=== PATIENT | female | born 1960 | race Asian ===

== ENCOUNTER 2016-05-21 12:51 | Day surgery (SDC) | payer OTHER ==
[~2016-05-21] VITALS: Ht 157.5 cm; Wt 58.9 kg
[2016-05-21] MEDS ORDERED: DEXTROSE 50% 50 ML SYRINGE ONE (14:18)
[2016-05-21 14:19] VITALS: Ht 157.5 cm; Wt 58.9 kg
[2016-05-21] MEDS ORDERED: PARO20TA58 PO (14:25)
[2016-05-21] MEDS ORDERED: METF-480 PO (14:25)
[2016-05-21] MEDS ORDERED: CRES10 PO (14:25)
[2016-05-21 15:13] VITALS: BP 116/79; PULSE 91; RESP 16
[2016-05-21] MEDS ORDERED: MIDAZOLAM 1 MG/ML 2 ML INJ ONE (15:36)
[2016-05-21] MEDS ORDERED: PROPOFOL 20 ML ONE (15:36)
[2016-05-21] MEDS ORDERED: LIDOCAINE 2% (SDV) 5 ML INJ ONE (15:36)
[2016-05-21 16:20] VITALS: BP 103/55; PULSE 76; RESP 16
[2016-05-21 16:50] VITALS: BP 119/82; PULSE 72; RESP 13
--- NOTE | 2016-05-21 19:37 | GILP ---
DATE OF PROCEDURE: NAME OF PROCEDURE: Colonoscopy to cecum. SURGEON: Luis Armando Foster MD. HISTORY AND INDICATIONS: The patient here for colorectal cancer screening. PREMEDICATION: Monitored anesthesia care by anesthesiologist. INSTRUMENT USED: Olympus colonoscope. PREPARATION: Adequate. TECHNIQUE: After informed consent, with the patient/relatives understanding the procedure, its indic ations potential risks and complications, including but not limited to: allergic reaction, bleeding, perforation, infection, missed lesions, and after all pertinent questions were answered to the mayra ent's satisfaction, the patient/relatives signed the witnessed informed consent. Following this, premedication was administered slowly IV push by under careful cardiovascular and re spiratory monitoring with pulse oximetry, automatic blood pressure and shelter monitor. Once the sedati ve effect was achieved, the patient was placed in the left lateral decubitus position, digital recta l examination was performed. The colonoscope was then introduced and advanced under visual control throughout all segments of the colon including: the rectum, sigmoid, descending colon, splenic flexu re, transverse colon, hepatic flexure, ascending colon and finally reaching the cecum which was rajiv rly identified by transillumination, finger indentation and the ileocecal valve. Careful examinatio n of the mucosa of the lower gastrointestinal tract both on insertion as well as withdrawal of the i nstrument disclosed the following findings: Rectal Examination: No evidence of perirectal disease, no masses. Colonic Mucosa: The colonic mucosa is remarkable for a posterior multiple aphthous ulcerations/nodul arities in the rectum. Biopsies were obtained. The remainder of colonic mucosa is entirely unremar kable. The ileocecal valve was clearly identified and appears unremarkable. Terminal ileum was ent ered and appears unremarkable as well. The instrument was withdrawn reexamining the mucosa in detai l. No additional abnormalities are noted with exception of moderate sized internal hemorrhoids. The instrument was then withdrawn, the patient tolerated the procedure well and was transferred out of the [facility] awake and in good condition to continue recovery under observation. IMPRESSION: 1. Cluster of aphthous ulcers/nodules in the area of the rectum. Biopsies were obtained. 2. Otherwise, normal colonic mucosa and normal terminal ileum. PLAN: Pathology will be reviewed as soon as available. The patient will be followed as an outpatie nt. Further recommendation will depend on her clinical course as well as review of biopsies. Annua iris Hemoccult stool testing is recommended and screening colonoscopy in 10 years is recommended as wel l. Dictated By: LUIS ARMANDO FOSTER MS/SHERINE Conf#: [id number] DID#: [id number] CC: LUIS ARMANDO FOSTER;*EndCC*
== END 2016-05-21 16:21 | disposition home or self-care (01) ==
LOC: GIL 12:51
PROVIDERS: ATTEND Internal Medicine Gastroenterology
DX: Z12.11 Encounter for screening for malignant neoplasm of colon (principal); K62.6 Ulcer of anus and rectum; E11.9 Type 2 diabetes mellitus without complications; E78.5 Hyperlipidemia, unspecified
CPT/HCPCS: 45380; 82962; 88305; J2250; Z7610